=== PATIENT | female | born 1965 | race Caucasian/White ===

== ENCOUNTER 2020-07-30 01:08 | Emergency (ER) | payer OTHER ==
[~2020-07-30] VITALS: Ht 170.2 cm; Wt 54.4 kg
[2020-07-30] MEDS ORDERED: THIAMINE 100mg/ml INJ (200mg/2ml VIAL) IV ONE (02:00)
[2020-07-30] MEDS ORDERED: SODIUM CHLORIDE 0.9% 1,000 ML IV ONE (02:00)
[2020-07-30] MEDS ORDERED: LORazepam 2MG/ML-1ML VIAL IV ONE (02:00)
[2020-07-30 02:28] LABS: Basophils # (auto) 0.1 10 ^3/uL (0-0.2); Basophils % (auto) 0.9 % (0.0-2.0); Eosinophils # (auto) 0 10 ^3/uL (0-0.8); Eosinophils % (auto) 0.1 % (0.0-7.0); Hematocrit 42.9 % (36.0-46.0); Hemoglobin 14.9 g/dL (12.2-16.2); Lymphocytes # (auto) 0.7 10 ^3/uL (0.4-5.4); Lymphocytes % (auto) 10.8 % (10.0-50.0); Mean Corpuscular Hemoglobin 31.6 pg (28.0-32.0); Mean Corpuscular Hgb Conc. 34.6 g/dL (32.0-36.0); Mean Corpuscular Volume 91.2 fL (80.0-100.0); Monocytes # (auto) 0.5 10 ^3/uL (0-1.3); Monocytes % (auto) 7.8 % (0.0-12.0); Neutrophils # (auto) 5.1 10 ^3/uL (1.6-8.6); Neutrophils % (auto) 80.4 % (37.0-80.0); Nucleated Red Blood Cells % 0.1 %; Platelet Count (auto) 275 10^3/uL (140-450); Red Cell Distribution Width 12.9 % (11.8-14.3); White Blood Cell 6.3 10^3/uL (4.4-10.8)
[2020-07-30 02:43] LABS: Albumin 4.5 g/dL (3.4-5.0); Anion Gap 9 (5-15); Blood Urea Nitrogen 12 mg/dL (7-18); Calcium 9.3 mg/dL (8.5-10.1); Carbon Dioxide 27 mmol/L (21-32); Chloride 93 mmol/L (98-107); Glucose 118 mg/dL (74-106); Sodium 129 mmol/L (136-145)
[2020-07-30 02:45] LABS: Alanine Aminotransferase 101 U/L (13-56); Aspartate Aminotransferase 90 U/L (15-37); BUN/Creatinine Ratio 15.6; Blood Alcohol < 3.0 mg/dL (0-5); GFR African American 101 mL/min; GFR Non-African American 83 mL/min
[2020-07-30 02:48] LABS: Alkaline Phosphatase 72 U/L (45-117); Bilirubin, Total 1.4 mg/dL (0.2-1.0); Total Protein 8.1 g/dL (6.4-8.2)
[2020-07-30] MEDS ORDERED: LORazepam 0.5 MG TAB PO ONE (05:30)
[2020-07-30 05:36] VITALS: BP 132/92
== END 2020-07-30 05:40 | disposition home or self-care (01) ==
LOC: ER 01:08
DX: F10.239 Alcohol dependence with withdrawal, unspecified (principal); K70.30 Alcoholic cirrhosis of liver without ascites; Y90.8 Blood alcohol level of 240 mg/100 ml or more
CPT/HCPCS: 36415; 80053; 80320; 85025; 96361; 96374; 96375; 99284; J2060; J3411; J7030